=== PATIENT | male | born 1950 | race Caucasian/White ===

== ENCOUNTER 2019-03-10 05:47 | Inpatient (IN) ==
[2019-03-03 15:08] LABS: Basophils # (Auto) 0 K/mcL (0.0-0.3); Basophils % (Auto) 0.3 % (0.0-2.0); Eosinophils # (Auto) 0.1 K/mcL (0.0-0.7); Eosinophils % (Auto) 1.7 % (0.0-7.0); Granulocytes % (Auto) 46.9 % (38.0-78.0); Hematocrit 43.4 % (41.0-55.0); Hemoglobin 14.6 g/dL (13.5-16.5); Lymphocytes # (Auto) 1.6 K/mcL (1.5-4.8); Lymphocytes % (Auto) 41.9 % (15.5-49.0); Mean Cell Volume 92.8 fL (80.0-100.0); Mean Corpuscular HGB Conc 33.5 g/dL (31.0-36.0); Mean Platelet Volume 8.3 fL (7.4-10.4); Monocytes # (Auto) 0.3 K/mcL (0.1-0.9); Monocytes % (Auto) 9.2 % (1.0-12.0); Platelet Count 229 K/mcL (140-440); RBC 4.68 M/mcL (4.50-5.90); Red Cell Distribution Width 12.6 % (11.5-14.5); WBC 3.8 K/mcL (4.5-11.0)
[2019-03-03 15:20] LABS: Appearance,Urine CLEAR; Bilirubin,Urine NEG (NEG); Color,Urine YELLOW; Culture Indicated,Urine NO; Glucose,Urine (UA) NEGATIVE (NEG); Ketones,Urine NEG (NEG); Leukocyte Esterase,Urine NEG /uL (NEG); Nitrate,Urine NEG (NEG); Protein,Urine NEG (NEG); Specific Gravity,Urine 1.019 (1.000-1.035); Urine Blood NEG mg/dL (<0.03); Urobilinogen,Urine NEG (NEG)
[2019-03-03 15:26] LABS: Blood Urea Nitrogen 12 mg/dl (8-23); Calcium 9.4 mg/dl (8.6-10.4); Carbon Dioxide 27 mmol/L (22-30); Chloride 104 mmol/L (96-108); Glomerular Filtration Rate 86; Glucose 99 mg/dL (70-105); Potassium 4.7 mmol/L (3.3-5.1); Sodium 141 mmol/L (133-145)
[2019-03-03 15:58] LABS: Prothrombin Time 13.4 sec (11.9-14.5)
[2019-03-10] MEDS ORDERED: oxyCODONE 10 MG TAB.ER.12H PO SCH (06:00)
[2019-03-10] MEDS ORDERED: 0.9 % SODIUM CHLORIDE 9 ML, KETOROLAC 30 MG, ROPIVACAINE HCL/PF 49.5 ML, EPINEPHrine 0.... IJ SCH (06:00)
[2019-03-10] MEDS ORDERED: PREGABALIN 75 MG CAPSULE PO SCH (06:00)
[2019-03-10] MEDS ORDERED: ceFAZolin 2 GM in DEXTROSE 5% IN WATER 50 ML IV SCH (06:00)
[2019-03-10] MEDS ORDERED: ACETAMINOPHEN 500 MG TABLET PO SCH (06:00)
[2019-03-10] MEDS ORDERED: CELECOXIB 200 MG CAPSULE PO SCH (06:00)
[2019-03-10] MEDS ORDERED: TRANEXAMIC ACID 1,000 MG/10 ML VIAL IV ONE (09:20)
[2019-03-10] MEDS ORDERED: LIDOCAINE HCL/PF 100 MG/5 ML SYRINGE IV ONE (09:20)
[2019-03-10] MEDS ORDERED: KETAMINE 100 MG/ML ML IV ONE (09:20)
[2019-03-10] MEDS ORDERED: ESMOLOL 100 MG/10 ML VIAL IV ONE (09:20)
[2019-03-10] MEDS ORDERED: fentaNYL 100 MCG/2 ML VIAL IV ONE (09:20)
[2019-03-10] MEDS ORDERED: ONDANSETRON 4 MG/2 ML VIAL IV ONE (09:20)
[2019-03-10] MEDS ORDERED: MIDAZOLAM 2 MG/2 ML VIAL IV ONE (09:20)
[2019-03-10] MEDS ORDERED: PROPOFOL 200 MG/20 ML VIAL IV ONE (09:20)
[2019-03-10] MEDS ORDERED: ROCURONIUM 10 MG/ML ML IV ONE (09:20)
[2019-03-10] MEDS ORDERED: SUGAMMADEX SODIUM 200 MG/2 ML VIAL IV ONE (09:20)
[2019-03-10] MEDS ORDERED: ROPIVACAINE HCL/PF 30 ML VIAL IJ ONE (09:20)
[2019-03-10] MEDS ORDERED: GLYCOPYRROLATE 0.2 MG/ML VIAL IV ONE (09:20)
[2019-03-10] MEDS ORDERED: GENTAMICIN SULFATE 800 MG/20 ML VIAL IR ONE (09:48)
[2019-03-10] MEDS ORDERED: TRANEXAMIC ACID 1,000 MG/10 ML VIAL IV SCH (10:56)
[2019-03-10] MEDS ORDERED: POLYETHYLENE GLYCOL 3350 17 GM PACKET PO PRN (10:56)
[2019-03-10] MEDS ORDERED: MAGNESIUM HYDROXIDE 30 ML ORAL.SUSP PO PRN (10:56)
[2019-03-10] MEDS ORDERED: BENZOCAINE/MENTHOL 1 LOZENGE PO PRN (10:56)
[2019-03-10] MEDS ORDERED: FLEETS ADULT ENEMA PR PRN (10:56)
[2019-03-10] MEDS ORDERED: HYDROmorphone 2 MG/ML VIAL IV PRN (10:56)
[2019-03-10] MEDS ORDERED: KETOROLAC 15 MG/ML VIAL IV PRN (10:56)
[2019-03-10] MEDS ORDERED: ACETAMINOPHEN 325 MG TABLET PO PRN (10:56)
[2019-03-10] MEDS ORDERED: ONDANSETRON 4 MG/2 ML VIAL IV PRN ×2 (10:56→13:04)
[2019-03-10] MEDS ORDERED: BISACODYL 10 MG SUPP.RECT PR PRN (10:56)
[2019-03-10] MEDS ORDERED: traMADol 50 MG TABLET PO PRN (10:57)
--- NOTE | 2019-03-10 11:00 | Brief Operative Note ---
Date of procedure: 03/10/19 Pre-op diagnosis: right shoulder djd Post-op diagnosis: same Procedure: right reverse tsa and bicep tenodesis Grafts/Implants: Yes Anesthesia: GETA Complications Description: 03/10/19 10:58 none Surgeon: Jaleel Mcknight Medical Imaging Director: Jackson Conte
--- NOTE | 2019-03-10 11:49 | Operative Note ---
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 PROCEDURE: Right reverse total shoulder and a biceps tenodesis. SURGEON: Jaleel Mcknight MD KARATE BLACK BELT: Jackson Conte PA-C. The PA's assistance was required for the safe and efficient completion of the entire case. This provider's expertise and technical skill were required throughout the case. The PA assisted with preoperative coordination, intraoperative retraction, wound closure, dressing and splint application, as well as postoperative documentation and care coordination. ESTIMATED BLOOD LOSS: About 100 mL IMPLANTS: Cementless Manning stem with a 36 mm glenosphere with a +6 mm offset, 2 mm of eccentricity with a 6 mm poly humeral component. Four screws were placed-size of screws per nurse's note. The alignment was excellent with excellent stability. DESCRIPTION OF PROCEDURE: The patient was brought to the operating room and put to sleep with general LMA anesthesia. Once asleep, the patient had the right shoulder sterilely prepped and draped in the usual sterile fashion. Ioban was placed over the skin to keep it from the operative field. A deltopectoral interval was placed with the incision. A timeout was performed to confirm this as the operative site. We subluxed the humeral head, released the subscap and repaired the bicep tendon which was in the bicipital groove. This was found and then with two [id number] stitches placed through this into the major and roughened the bone in this area to help with healing. We subluxed the humeral head, cut the humeral neck at 20 degrees of retroversion. We then subluxed the head posteriorly and reamed up the acetabulum. After removing the labrum and removing the remnants of the biceps tendon we reamed this up to the size 36 mm glenosphere. Because of the severity of the wear posteriorly we had to align the component to preserve bone as well as to medialize the glenoid. Once stable, we then placed the metaglene; a central 36 mm screw and three other screws were placed. We locked this into place. Once done, we then placed a 36 mm glenosphere with 2 mm of eccentricity and 6 mm of offset. The humeral side was then broached up to the size 12 stem. We trialed this with a 4 and 6 poly. The 6 poly was most accurate. We then cemented the distal portion of the stem into place because of the patient's bone quality, and 20 degrees retroversion. We placed a 6 mm poly which was reduced. We then irrigated thoroughly and closed the deltopectoral interval with #1 Vicryl. There was no significant bleeding of the cephalic vein. It was preserved and no muscle damage. We irrigated thoroughly and closed the skin with a #1 Stratafix and adhesive closure. The patient tolerated this well without complication. RBH:sameer Job ID: [id number] Doc ID: [id number] Jaleel Mcknight MD
--- NOTE | 2019-03-10 11:59 | XRay Report ---
HISTORY: Follow-up right shoulder arthroplasty FINDINGS: There is a well-positioned reverse total shoulder prosthesis. There is no fracture or abnormal soft tissue calcification around the joint. The right lung volume is relatively small and there are prominent lung markings throughout. This may be atelectasis or fluid overload. There may be a small right-sided pleural effusion. IMPRESSION: Well-positioned right shoulder prosthesis Possible fluid overload in the right lung Interpreted and Authenticated by: Venancio Blackwell 03/10/19
[2019-03-10] MEDS: 0.45 % SODIUM CHLORIDE 1,000 ML IV SCH ×2 (12:03→22:39)
[2019-03-10] MEDS ORDERED: METHOCARBAMOL 1,000 MG/10 ML VIAL IV PRN (13:04)
[2019-03-10] MEDS ORDERED: IPRATROPIUM/ALBUTEROL 3 ML AMPUL.NEB NEB PRN (13:04)
[2019-03-10] MEDS ORDERED: fentaNYL 100 MCG/2 ML VIAL IV PRN (13:04)
[2019-03-10] MEDS ORDERED: LACTATED RINGERS 1,000 ML IV SCH (13:15)
[2019-03-10] MEDS ORDERED: [UNRECOGNIZED DRUG - OTHER] TOPICAL PRN (15:23)
[2019-03-10] MEDS ORDERED: [UNRECOGNIZED DRUG - OTHER] OU PRN (15:24)
[2019-03-10] MEDS: ceFAZolin 1 GM VIAL IV SCH (16:57)
[2019-03-10] MEDS: 0.9 % SODIUM CHLORIDE 10 ML SYRINGE IV SCH ×2 (16:58→22:44)
[2019-03-10] MEDS ORDERED: TEMAZEPAM 15 MG CAPSULE PO PRN (21:00)
[2019-03-10] MEDS ORDERED: SENNOSIDES 1 TABLET PO SCH (21:00)
[2019-03-10] MEDS ORDERED: rOPINIRole 0.25 MG TABLET PO SCH (21:00)
[2019-03-10] MEDS: DOCUSATE SODIUM 100 MG CAPSULE PO SCH (21:02)
[2019-03-11] MEDS: ceFAZolin 1 GM VIAL IV SCH (00:25)
[2019-03-11] MEDS: HYDROcodone/APAP 10/325MG TABLET PO PRN ×3 (01:09→08:07)
[2019-03-11] MEDS: 0.9 % SODIUM CHLORIDE 10 ML SYRINGE IV SCH (05:11)
--- NOTE | 2019-03-11 07:34 | Orthopedic Progress Note ---
Subjective Patient information: Note initiated : 03/11/19 at 7:33 am Service Date, if different from initiated Date: [] Patient: Marylin Nagy 68 y/o M admitted on 03/10/19 for Right Total Shoulder Arthroplasty with. Chief Complaint: [Pt is stable this morning on post operative day 1 without any significant concerns or complaints. Patients vital signs have remained stable. Patients dressing is dry and is grossly intact from a neurovascular and motor standpoint. Patients 10 point ROS is otherwise negative. ] Objective Vital signs: Vital Signs Temp Pulse Resp BP Pulse Ox 03/11/19 04:16 98.2 F 81 16 119/70 90 03/11/19 00:28 98.6 F 81 16 130/79 90 03/10/19 19:09 98.3 F 90 18 125/74 91 03/10/19 16:00 97.9 F 100 H 18 143/86 92 03/10/19 14:55 97.4 F 80 18 169/89 94 03/10/19 13:55 57 L 18 143/81 96 03/10/19 13:25 97.1 F 61 18 150/83 91 03/10/19 12:55 58 L 18 154/82 93 03/10/19 12:40 68 18 159/93 91 03/10/19 12:25 68 16 160/82 91 03/10/19 12:10 97.0 F 65 16 144/82 92 03/10/19 11:55 97 F 66 18 137/82 03/10/19 11:50 97.3 F 79 16 140/80 03/10/19 11:45 81 16 150/96 99 03/10/19 11:35 97 F 100 H 18 140/91 100 03/10/19 11:25 82 18 122/75 03/10/19 11:20 97.2 F 66 12 126/79 100 03/10/19 11:16 97.4 F 73 14 132/79 99 03/10/19 11:15 70 12 132/79 100 03/10/19 11:10 80 16 138/86 99 03/10/19 11:05 96.4 F L 76 16 112/64 99 03/10/19 08:00 97.3 F 61 18 133/83 94 Intake and Output 03/10/19 03/11/19 03/11/19 21:59 05:59 13:59 Intake Total 240 400 Output Total 875 1000 Balance -635 -600 Intake: Oral 240 400 Output: Void Amount 875 1000 Other: Meal Lunch Percent of Meal Consumed 100% Feeding Ability Assist with Tray Set Up Urine Appearance Clear Clear Urine Color Pale Pale Urine Odor Normal Weight 206 lb Intake & Output: Intake & Output 03/10/19 03/11/19 03/11/19 21:59 05:59 13:59 Intake Total 240 400 Output Total 875 1000 Balance -635 -600 Weight 206 lb Intake: Oral 240 400 Output: Void Amount 875 1000 Other: Meal Lunch Percent of Meal Consumed 100% Feeding Ability Assist with Tray Set Up Urine Appearance Clear Clear Urine Color Pale Pale Urine Odor Normal Incision: Yes healing Incision clean and dry: Yes Dressing: Yes clean Weight bearing status: full Neurological exam IM: Yes motor sensory intact, Yes neurovascular intact - Labs CBC & BMP: 03/03/19 13:30 03/03/19 13:30 Labs: Orthopedic Labs 03/03/19 13:30 PT 13.4 INR 1.0 03/03/19 13:30 Hgb 14.6 Hct 43.4
--- NOTE | 2019-03-11 07:37 | Discharge Summary ---
Ortho Discharge - TSA - Patient Instructions Diet: Regular Diet Activity: activity as tolerated, weight bearing as tolerated Total Shoulder Protocol: Leave immobilizer in place except for bathing and ROM. Abduction pillow. Continue to wear sling until seen by physician. Codman Pendulum : These exercises use momentum produced by your body to move your shoulder joint. Bend your knees and shift your weight to your front leg, then back, allowing your arm to swing in the same directions. Using the same technique, alternately shift your weight between your right and left legs, allowing your arm to swing from side to side. These exercises are also performed in counterclockwise and clockwise circular motions. Typically these exercises are performed several times per day, for a set number repetitions or minutes, such as 20 times in a row or 5 minutes at a time. Dressing Care: May shower in 2 days - Follow Up Plan Follow Up Appointments: Jaden Gilbert PA-C [Physician [employer]rentice] - 03/25/19 1:40 pm Disposition: Home, Self-Care Prognosis: Good Rehab Potential: Good I certify that the patient requires SNF services: No Overall status at discharge: patient is progressing back to baseline - Orders For Discharge Prescriptions: Docusate Sodium [Colace] 100 mg PO BID #60 cap HYDROcodone/APAP 10/325MG [[place] 10-325Mg] 1 - 2 tab PO Q4HP PRN #75 tab PRN Reason: Pain Level 3-6
[2019-03-11] MEDS: PANTOPRAZOLE 40 MG TABLET PO SCH ×2 (07:57→07:59)
[2019-03-11] MEDS: DOCUSATE SODIUM 100 MG CAPSULE PO SCH (08:07)
[2019-03-11] MEDS ORDERED: MULTIVIT,THER IRON,CA,FA & MIN 1 TABLET PO SCH (09:00)
[2019-03-11] MEDS ORDERED: PNEUMOCOCCAL 23-VAL P-SAC VAC 0.5 ML SYRINGE IM ONE (10:00)
== END 2019-03-11 11:07 | disposition home or self-care (01) | DRG 483 ==
LOC: MEDSUR 05:47
PROVIDERS: ADMIT Orthopaedic Surgery; ATTEND Orthopaedic Surgery